=== PATIENT | male | born 2000 | race African-American/Black ===

== ENCOUNTER → 2021-02-24 09:07 | Outpatient (CLI) | payer OTHER, SELFPAY | PROVIDERS: PCP Pediatrics; Referring Provider Family Medicine; Visit Provider Family Medicine | DX: Z23 Encounter for immunization (principal) | CPT/HCPCS: 0031A; 91303 ==

== ENCOUNTER 2021-08-17 11:04 | Emergency (ER) | payer OTHER, SELFPAY ==
[2021-08-17 11:05] VITALS: BP 113/81; PULSE 71; RESP 16; TEMP 36.6; O2SAT 95; BMI 23.0
[2021-08-17 11:10] VITALS: BP 113/81; PULSE 71; RESP 16; TEMP 36.6; O2SAT 95
--- NOTE | 2021-08-17 11:35 | RAD_ITS ---
STUDY: X-RAY CHEST REASON FOR EXAM: Male, 20 years old. cough sob/wheezing TECHNIQUE: Single AP portable view of the chest. COMPARISON: None. FINDINGS: The lungs are clear and expanded. There is no demonstrated pleural abnormality. Normal size heart. Normal mediastinum and hollis. Normal visualized pulmonary arteries. Normal visualized aortic arch and descending thoracic aorta. Mild dextroscoliosis with spinal rods. Normal visualized ribs, clavicles, and shoulders. There is no demonstrated abnormality of the visualized soft tissue structures of the upper abdomen. RAD/Chest 1 View (Portable) IMPRESSION: No active disease. Electronically Signed: Diego Guido MD at 12:11 EDT Tel , Service support ,
--- NOTE | 2021-08-17 11:36 | EDS_ITS ---
HPI HPI - URI History of Present Illness Chief Complaint: Cough Informant: patient Onset/Context/Timing Onset: Days (2-3) Context: Gradual Onset Timing: Continuous Quality: wheezing, congestion Location: chest Current Severity: Mild Maximum Severity: Mild Worsened by: - (coughing, exertion) Relieved by: - (rest) Associated Symptoms Associated Symptoms: Positive for Nasal Congestion, Headache (I've had headaches already because of a concussion), Shortness of Breath and Nonproductive cough; Negative for Sinus Pressure, Myalgias, Nausea, Vomiting and Hemoptysis Narrative Narrative: Patient presenting with upper respiratory tract infection symptoms along with wheezing that started couple days ago. He is a college student. He was vaccinated against Covid. He has been in contact with no one with Covid that he knows of. ROS ROS ED Constitutional Constitutional ED: Reports chills and headache(s); Denies body ache(s), fatigue, fever(s) or malaise Eyes Eyes: Denies change in vision or diplopia ENT ENT ED: Reports nasal congestion; Denies loss taste/smell, rhinorrhea or sore throat Cardiovascular Cardiovascular: Denies chest pain or palpitations Respiratory/Chest Respiratory/Chest: Reports cough, dyspnea, dyspnea on exertion and wheezing Gastrointestinal Gastrointestinal: Denies abdominal pain, diarrhea, nausea or vomiting Genitourinary Genitourinary ED: Denies dysuria or hematuria Musculoskeletal Musculoskeletal: Denies back pain or neck pain Integumentary Denies abscess or rash Neurologic Neurologic: Reports headache(s); Denies paresthesias or weakness Psychiatric Psychiatric: Denies anxiety or suicidal thoughts PFSH PFSH Medical History no medical history no medical history Home Medications albuterol sulfate [Ventolin HFA] 1 - 2 puff INHALATION Q4H PRN PRN #1 inhaler 08/17/21 [Rx Last Taken Unknown] Allergy/AdvReac Type Severity Reaction Status Date / Time No Known Allergies Allergy Verified 08/17/21 11:05 Surgical History Previous back surgery Social History Smoking Status: Current every day smoker tobacco type: cigarettes EXAM Physical Exam Const Vital Signs: 08/17/21 11:05 08/17/21 11:10 08/17/21 11:59 Temperature 97.8 F 97.8 F Temperature Source Temporal Temporal Pulse Rate 71 71 74 Respiratory Rate 16 16 16 Respiratory Effort Normal Respiratory Depth Normal Respiratory Pattern Normal Normal Blood Pressure 113/81 H 113/81 H Blood Pressure Mean 91 91 Pulse Ox 95 95 Oxygen Delivery Method Room Air Room Air Positive well nourished and well developed Constitutional Narrative: Well-appearing, no distress General Appearance ED: well developed and NAD HEENT Reports moist mucous membranes normocephalic and atraumatic Eyes PERRL and EOMs intact bilaterally Neck full ROM and supple Lymph Lymphatic: no lymphadenopathy noted Resp normal respiratory effort, normal air movement, no retractions and no use of accessory muscles Resp Narrative: Inspiratory more than expiratory wheezing throughout both caldwell, relatively mild, no crackles/rhonchi/Rales, normal effort of breathing with no distress Cardio regular rate, regular rhythm and no murmurs Rate: Negative for tachycardic GI non-tender and non-distended Auscultation: normoactive bowel sounds Palpation: soft Back/Spine no CVA tenderness General Back: other FROM Extremity normal to inspection and no calf tenderness General Extremety ED: Negative for edema, pulses abnormal or tenderness General Extremity: Negative for edema or pulses abnormal Neuro oriented x3, CN's II-XII intact bilaterally and no sensory deficits noted Sensorium / Orientation: awake and alert Motor Exam: strength 5/5 throughout Skin no rashes or lesions noted and no wounds MDM MDM MDM Narrative Medical decision making narrative: Rapid Covid negative. Chest x-ray normal 1 view on my interpretation, radiology in agreement. Patient feels much better with resolution of his wheezing after a single duo nebulizer treatment. His vital signs are normal. He does not have a history of asthma. He told the nurse that he did not have asthma and there was a misunderstanding, she initially documented it in his medical history but this was changed due to the fact that he states he has never wheezed before this. Therefore my suspicion is he has wheezy bronchitis and prednisone would likely not help that. He was given a prescription for an MDI and instructions for supportive care and follow- up as needed discussed reasons to return he is comfortable with that plan. Radiography Diagnostic Testing: Clinical Impression(s) from Imaging Studies Chest X-Ray 08/17/21 11:35 IMPRESSION: No active disease. Electronically Signed: Diego Guido MD at 12:11 EDT Tel , Service support , Discharge Plan Triage Chief Complaint: Cough ED Provider: Jori Perdomo Dx/Rx/DC Orders Clinical Impression: Acute wheezy bronchitis Instructions: ED Bronchitis with Wheezing (Adult) Prescriptions: New albuterol sulfate [Ventolin HFA] 1 INHALER inhaler 1 - 2 puff inhalation Q4H PRN PRN (Reason: Wheezing) Qty: 1 RF: 0 Primary Care Provider: Care Physician,No Primary Referrals: [facility] [GROUP OF PHYSICIANS] - 10-14 Days if not better Care Physician,No Primary [Primary Care Provider] - Disposition Disposition: Home, Self Care
[2021-08-17] MEDS: Ipratropium/Albuterol Sulfate 3 ML AMPUL.NEB INHALATION (11:53)
[2021-08-17 11:59] VITALS: PULSE 74; RESP 16
[2021-08-17 13:04] VITALS: RESP 18; O2SAT 95
== END 2021-08-17 13:21 | disposition home or self-care (01) ==
PROVIDERS: Emergency Provider Emergency Medicine
DX: J20.9 Acute bronchitis, unspecified (principal); F17.210 Nicotine dependence, cigarettes, uncomplicated
CPT/HCPCS: 71045; 87426; 94640; 99282

== ENCOUNTER 2021-11-18 15:05 | Outpatient (CLI) | payer OTHER, SELFPAY | END 2021-11-18 23:59 | disposition short-term general hospital (02) | LOC: IMMUN 15:10 | PROVIDERS: Referring Provider Family Medicine; Visit Provider Family Medicine | DX: Z23 Encounter for immunization (principal) ==

== ENCOUNTER 2023-06-30 20:24 | Emergency (ER) | payer OTHER, SELFPAY ==
[2023-06-30 20:25] VITALS: BP 138/82; PULSE 90; RESP 18; TEMP 37.3; O2SAT 96; BMI 24.4
--- NOTE | 2023-06-30 20:45 | RAD_ITS ---
STUDY: X-RAY CHEST REASON FOR EXAM: Male, 22 years old. sob TECHNIQUE: Single AP portable view of the chest. COMPARISON: 08/17/2021. FINDINGS: The lungs are clear and expanded. There is no demonstrated pleural abnormality. Normal size heart. Normal mediastinum and hollis. Normal visualized pulmonary arteries. Normal visualized aortic arch and descending thoracic aorta. Diffuse posterior fusion throughout the thoracic spine. Normal visualized ribs, clavicles, and shoulders. There is no demonstrated abnormality of the visualized soft tissue structures of the upper abdomen. RAD/Chest 1 View (Portable) IMPRESSION: No acute cardiopulmonary disease. Electronically Signed: Kiki Rizzo MD at 21:23 EDT ,
[2023-06-30 22:15] VITALS: O2SAT 94
[2023-06-30 22:33] VITALS: O2SAT 99
[2023-06-30] MEDS: Ipratropium/Albuterol Sulfate 3 ML AMPUL.NEB INHALATION (22:51)
[2023-06-30 22:53] VITALS: PULSE 76; RESP 18
--- NOTE | 2023-07-01 00:09 | EDS_ITS ---
HPI History of Present Illness Chief Complaint: Shortness of Breath Informant: patient Onset/Context/Timing Onset: Today Context: sudden Timing: Continuous Quality: Positive for Dyspnea on exertion Worsened by: Exertion Relieved by: Nothing Associated Symptoms cough, fever, sore throat and subjective; Negative for rhinorrhea, post nasal drip, ear pain, sweats, clear sputum, white sputum, yellow sputum or green sputum Chest Pain: Positive for Aching and Tightness Narrative Narrative: Patient presents with shortness of breath that began today. Patient states it came on rather suddenly. Patient states it is constant. Patient states it is worse with any exertion. Patient states nothing seems to help with it. Patient admits to a cough but denies any sputum. Patient also admits to a sore throat. Patient admits to some subjective fevers but denies any chills. Patient admits to some tightness and aching in his chest. Patient denies any nausea or vomiting. PE Risk Factors: Negative for Cancer, OCP + Smoking + > 35, Prior DVT or PE, Recent immobilization, Recent surgery or Recent travel [facility] Medical History no medical history no medical history Home Medications albuterol sulfate 90 mcg/actuation aerosol inhaler (Ventolin HFA) 1 - 2 puff inhalation Q4H PRN PRN Wheezing ##1 07/01/23 [Rx Last Taken Unknown] Allergy/AdvReac Type Severity Reaction Status Date / Time No Known Allergies Allergy Verified 06/30/23 20:27 Surgical History Previous back surgery Social History Smoking Status: Current every day smoker tobacco type: cigarettes and e- cigarettes ROS ROS ED Constitutional Constitutional ED: Denies chills or fever(s) Eyes Eyes: Denies blurry vision or change in vision ENT ENT ED: Denies rhinorrhea or sore throat Cardiovascular Cardiovascular: Reports chest pain; Denies palpitations Respiratory/Chest Respiratory/Chest: Reports cough and dyspnea Gastrointestinal Gastrointestinal: Denies nausea or vomiting Genitourinary Genitourinary ED: Denies dysuria or hematuria Musculoskeletal Musculoskeletal: Denies back pain or neck pain Integumentary Denies abscess or rash Neurologic Neurologic: Denies headache(s) or weakness Allergic/Immunologic Allergic/Immunologic ED: Denies mouth swelling or urticaria EXAM Physical Exam Const Vital Signs: 06/30/23 20:25 06/30/23 22:15 06/30/23 22:16 Temperature 99.2 F H Temperature Source Temporal Pulse Rate 90 Respiratory Rate 18 Respiratory Effort Respiratory Pattern Blood Pressure 138/82 H Blood Pressure Mean 100 Pulse Ox 96 94 Oxygen Delivery Method Room Air Room Air Nasal Cannula Oxygen Flow Rate (L/min) 2 06/30/23 22:29 06/30/23 22:53 Temperature Temperature Source Pulse Rate 76 Respiratory Rate 18 Respiratory Effort Short of Breath Labored Respiratory Pattern Tachypnea Blood Pressure Blood Pressure Mean Pulse Ox Oxygen Delivery Method Nasal Cannula Oxygen Flow Rate (L/min) 2 Positive well nourished and well developed General Appearance ED: well developed and NAD HEENT Reports moist mucous membranes Neck supple and no JVD Resp normal respiratory effort Auscultation: wheezes expiratory wheezes and throughout Cardio regular rate, regular rhythm and no murmurs GI normal to inspection, nondistended, normoactive bowel sounds and non-tender Palpation: soft Extremity normal to inspection General Extremety ED: Negative for edema or tenderness General Extremity: Negative for edema Neuro oriented x3, CN's II-XII intact bilaterally and no sensory deficits noted Sensorium / Orientation: alert Motor Exam: strength 5/5 throughout Psych mental status grossly normal Skin no rashes or lesions noted MDM MDM MDM Narrative Medical decision making narrative: Differential diagnosis includes pneumonia, viral upper respiratory infection, COVID-19 infection, asthma, reactive airway disease, and pharyngitis. Chest x- ray will be obtained to assess for pneumonia and pneumothorax. COVID-19 rapid antigen will be obtained to assess for COVID-19 infection. Radiography Chest X-Ray - ED: 1 View, Read by ED Physician, Read by Radiologist and No Acute Disease Diagnostic Testing: Clinical Impression(s) from Imaging Studies Chest X-Ray 06/30/23 20:45 IMPRESSION: No acute cardiopulmonary disease. Electronically Signed: Kiki Rizzo MD at 21:23 EDT , Portable 1 view chest x-ray was obtained. On my independent interpretation, lung caldwell are clear. There is normal cardiac silhouette. Bony thorax is normal. There is no acute process noted. Radiologist also interpreted the x- ray and agrees. Treatment and Re-Evaluation :: Smoking cessation was discussed. Patient was given a DuoNeb aerosol here. Patient was feeling better after this. Patient's lungs were clear after the DuoNeb aerosol. Patient was given a prescription for albuterol inhaler. Patient was instructed to follow-up with his primary care physician in 5 to 7 days. Patient was instructed return if worse in any way. Patient understood and was agreeable with the plan. All questions were answered. Discharge Plan Triage Chief Complaint: Shortness of Breath ED Provider: Abisai Stanton Dx/Rx/DC Orders Clinical Impression: Reactive airway disease, Tobacco use Instructions: ED Asthma, Acute (Adult), ED Inhaler Use Prescriptions: New albuterol sulfate [Ventolin HFA] 90 mcg/actuation HFA aerosol inhaler 1 - 2 puff inhalation Q4H PRN PRN (Reason: Wheezing) Qty: 1 0RF Primary Care Provider: Cain Hillman Referrals: Cain Hillman MD [Primary Care Provider] - 5-7 Days Disposition Disposition: Home, Self Care
== END 2023-07-01 00:50 | disposition home or self-care (01) ==
PROVIDERS: Emergency Provider Emergency Medicine; PCP Family Medicine; Visit Provider Emergency Medicine
DX: J45.909 Unspecified asthma, uncomplicated (principal); F17.210 Nicotine dependence, cigarettes, uncomplicated
CPT/HCPCS: 71045; 87811; 94640; 94760; 99282

== ENCOUNTER 2023-07-01 03:41 | Emergency (ER) | payer OTHER, SELFPAY ==
[2023-07-01 03:41] VITALS: BP 144/76; PULSE 84; RESP 16; TEMP 36.6; O2SAT 100; BMI 23.6
[2023-07-01 03:44] VITALS: O2SAT 100
--- NOTE | 2023-07-01 03:59 | ED.VIS.DYS ---
HPI History of Present Illness Chief Complaint: Shortness of Breath Detail of Chief Complaint: Shortness of breath Informant: patient Narrative Narrative: Patient presents to the emergency department complaint of shortness of breath. Patient states symptoms started yesterday. He was seen in the emergency department and discharged several hours ago. Patient had a COVID test that was negative and a chest x-ray that was unremarkable. Patient was given breathing treatments and apparently felt improved. Patient went home and started feeling more short of breath so he called the squad. He does state that he was recently in [place]. Patient denies any fever. Does describe some chest discomfort when he gets short of breath. No history of PE or DVT. PFSH PFSH Home Medications albuterol sulfate 90 mcg/actuation aerosol inhaler (Ventolin HFA) 1 - 2 puff inhalation Q4H PRN PRN Wheezing ##1 07/01/23 [Rx Last Taken Unknown] prednisone 20 mg tablet 20 mg PO BID #10 tabs 07/01/23 [Rx Last Taken Unknown] Allergy/AdvReac Type Severity Reaction Status Date / Time No Known Allergies Allergy Verified 06/30/23 20:27 Surgical History Previous back surgery Social History Smoking Status: Current every day smoker tobacco type: cigarettes and e-cigarettes ROS ROS ED Review of Systems ROS Unobtainable: other Constitutional Constitutional ED: Reports lethargy; Denies chills, fever(s), sweats or weight loss Eyes Eyes: Denies blurry vision, change in vision or diplopia ENT ENT ED: Denies rhinorrhea or sore throat Cardiovascular Cardiovascular: Reports chest pain; Denies orthopnea or racing heartbeat Respiratory/Chest Respiratory/Chest: Reports dyspnea and dyspnea on exertion; Denies cough, orthopnea or sputum Gastrointestinal Gastrointestinal: Denies abdominal pain, diarrhea, nausea or vomiting Genitourinary Genitourinary ED: Denies dysuria, hematuria or urinary frequency Musculoskeletal Musculoskeletal: Denies arthralgias, back pain, myalgias or neck pain Integumentary Denies abscess, Abrasions or rash Neurologic Neurologic: Denies headache(s) or weakness Psychiatric Psychiatric: Denies anxiety, depression or suicidal thoughts Endocrine Endocrinology: Denies polydipsia, polyphagia or polyuria Hematologic/Lymphatic Hematologic/Lymphatic: Denies easy bleeding, easy bruising or lymphadenopathy Allergic/Immunologic Allergic/Immunologic ED: Denies mouth swelling, tongue swelling or urticaria EXAM Physical Exam Const Vital Signs: 07/01/23 03:41 07/01/23 03:44 07/01/23 04:08 Temperature 98 F Temperature Source Temporal Pulse Rate 84 86 Respiratory Rate 16 18 Respiratory Effort Non-Labored Short of Breath Respiratory Depth Normal Respiratory Pattern Normal Blood Pressure 144/76 H Blood Pressure Mean 98 Pulse Ox 100 Oxygen Delivery Method Room Air Room Air 07/01/23 05:22 Temperature Temperature Source Pulse Rate 91 Respiratory Rate 16 Respiratory Effort Respiratory Depth Respiratory Pattern Blood Pressure Blood Pressure Mean Pulse Ox 99 Oxygen Delivery Method Positive well nourished and well developed General Appearance ED: well developed and NAD HEENT Reports TM's clear and moist mucous membranes normocephalic and atraumatic; Negative for trauma or tenderness Tympanic Membrane ED: Yes TM's clear Eyes PERRL and EOMs intact bilaterally General Eye ED: Negative for pale conjunctiva or scleral icterus Neck no lymphadenopathy, supple and no JVD General: Negative for tenderness Chest Wall inspection of chest normal and palpation of chest normal Chest: Negative for tenderness Resp normal respiratory effort and No clear to auscultation bilaterally Effort and Inspection: Negative for respiratory distress or pain with movement Auscultation: wheezes; Negative for rhonchi or diminished lung sounds Cardio regular rate, regular rhythm, S1 normal heart sound, S2 normal heart sound and no murmurs Peripheral Pulses: pulses 2+ throughout GI normal to inspection, nondistended, normoactive bowel sounds, soft to palpation, non-tender, non-distended and no masses Back/Spine no CVA tenderness and no thoracic nor lumbar tenderness Extremity normal to inspection General Extremety ED: Negative for edema General Extremity: Negative for edema Neuro oriented x3, CN's II-XII intact bilaterally, no sensory deficits noted and gait normal Sensorium / Orientation: awake, alert, oriented to person, oriented to place and oriented to time Motor Exam: strength 5/5 throughout and strength abnormal Psych mental status grossly normal Skin no rashes or lesions noted and no wounds MDM MDM MDM Narrative Medical decision making narrative: Patient returns with continued dyspnea and some wheezing. I did obtain a D-dimer being that he recently had travel to [place]. D-dimer was normal. Basic labs showed a white count of 11.2 with hemoglobin of 14 and platelets of 215. Chemistries were unremarkable. Patient was given Solu-Medrol 125 mg IV and DuoNeb aerosol. He felt markedly improved. This point he will be discharged to home and dispensed an albuterol MDI and will start on prednisone. Advised to follow-up with primary care physician within next 3 to 5 days. Vies to return if increasing shortness of breath or condition should worsen anyway. Patient advised to discontinue smoking CBD and tobacco. Lab Data Attestation: I reviewed the patient's lab results. Labs: Laboratory Results - last 24 hr 07/01/23 04:17 WBC 11.2 H RBC 5.39 Hgb 14.0 Hct 44.9 MCV 83.3 MCH 26.0 L MCHC 31.2 L RDW Std Deviation 37.9 RDW Coeff of Jeyson 12.5 Plt Count 215 MPV 8.8 Immature Gran % (Auto) 0.300 Neut % (Auto) 72.0 H Lymph % (Auto) 17.6 L Evangeline % (Auto) 7.7 Eos % (Auto) 2.1 Baso % (Auto) 0.3 Absolute Neuts (auto) 8.1 H Absolute Lymphs (auto) 1.97 Nucleated RBC % 0 D-Dimer Quant (PE/DVT) < 0.27 L Sodium 139 Potassium 3.6 Chloride 105 Carbon Dioxide 27.0 Anion Gap 7 BUN 8 Creatinine 1.19 Estim Creat Clear Calc 106.87 Est GFR (MDRD) Af Amer 98 Est GFR (MDRD) Non-Af 81 BUN/Creatinine Ratio 6.7 L Glucose 112 H Calcium 9.2 Discharge Plan Triage Chief Complaint: Shortness of Breath ED Provider: Keysha Pierce Dx/Rx/DC Orders Clinical Impression: Reactive airway disease, Tobacco use Instructions: ED Asthma, Acute (Adult) Prescriptions: New prednisone 20 mg tablet 20 mg PO BID Qty: 10 0RF No Action albuterol sulfate [Ventolin HFA] 90 mcg/actuation HFA aerosol inhaler 1 - 2 puff inhalation Q4H PRN PRN (Reason: Wheezing) Qty: 1 0RF Primary Care Provider: Cain Hillman Referrals: Cain Hillman MD [Primary Care Provider] - 3-5 Days Disposition Disposition: Home, Self Care Discharge Date/Time: 07/01/23 05:23
[2023-07-01] MEDS: Ipratropium/Albuterol Sulfate 3 ML AMPUL.NEB INHALATION (04:07)
[2023-07-01 04:08] VITALS: PULSE 86; RESP 18
[2023-07-01 04:24] LABS: Absolute Lymphocyte Count 1.97 X10^3/uL (0.83-4.51); Absolute Neutrophil Count 8.1 X10^3/uL (2.0-7.7); Basophil# 0.03 X10^3/uL; Basophil% 0.3 % (0-1); Eosinophil# 0.23 X10^3/uL; Eosinophils% 2.1 % (0-5); Hematocrit 44.9 % (40-54); Lymphocyte # 1.97 X10^3/ul (0.83-4.51); Lymphocyte % 17.6 % (19-41); Mean Corp Hgb Conc 31.2 g/dL (32-36); Mean Corpuscular Volume 83.3 fL (80-94); Mean Platelet Vol. 8.8 fl (6.2-12.0); Monocyte# 0.86 X10^3/uL; Monocyte% 7.7 % (0-10); NRBC Flagged by Analyzer 0 % (0-5); Neutrophil # 8.05 X10^3/uL (2.7-7.7); Platelet Count 215 K/mm3 (150-450); RBC Distribution Width CV 12.5 % (11.6-14.6); RBC Distribution Width SD 37.9 fl (35.1-43.9); Red Blood Count 5.39 M/mm3 (4.6-6.2); White Blood Count 11.2 K/mm3 (4.4-11.0)
[2023-07-01 04:37] LABS: Anion Gap 7 (5-15); BUN 8 mg/dL (7-18); BUN/Creat Ratio 6.7 RATIO (10-20); Calcium,Total 9.2 mg/dL (8.5-10.1); Chloride 105 mmol/L (98-107); Creatinine, Serum 1.19 mg/dL (0.70-1.30); EST Glomerular Filtration Rate 81 mL/min (>60); Est Glom Filt Rate - Afr Amer 98 mL/min (>60); Estimated Creatinine Clearance 106.87 ml/min; Glucose 112 mg/dL (74-106); Potassium 3.6 mmol/L (3.5-5.1); Sodium Level 139 mmol/L (136-145)
[2023-07-01 04:55] LABS: D-Dimer Quantitative (DVT/PE) < 0.27 FEU/ug/m (0.27-0.49)
[2023-07-01] MEDS: MethylPREDNISolone 125 MG/2 ML Vial IV (05:17)
[2023-07-01] MEDS: Albuterol Sulfate 8 gm Inhaler (60 puffs) 2 PUFF INHALATION (05:17)
[2023-07-01 05:22] VITALS: PULSE 91; RESP 16; O2SAT 99
== END 2023-07-01 05:23 | disposition home or self-care (01) ==
PROVIDERS: Emergency Provider Emergency Medicine; PCP Family Medicine; Visit Provider Emergency Medicine
DX: J45.909 Unspecified asthma, uncomplicated (principal); F17.210 Nicotine dependence, cigarettes, uncomplicated
CPT/HCPCS: 80048; 85025; 85379; 94640; 96374; 99284; A4216